=== PATIENT | female | born 1950 ===

== ENCOUNTER 2024-02-13 09:30 | Inpatient (IN) | payer OTHER ==
[~2024-02-13] VITALS: Ht 152.4 cm; Wt 50.8 kg
[2024-02-13] MEDS ORDERED: ISOSORBIDE DINI30 MG PO (11:01)
[2024-02-13] MEDS ORDERED: PEPCID AC20 MG PO (11:02)
[2024-02-13] MEDS ORDERED: LIPITOR20 MG PO (11:02)
[2024-02-13] MEDS ORDERED: PROTONIX20 MG PO (11:02)
[2024-02-13 11:03] VITALS: BP 150/88
[2024-02-22] MEDS ORDERED: CEFTRIAXONE SODIUM 2,000 MG VIAL IV ONE (08:45)
[2024-02-22] MEDS ORDERED: LIDOCAINE HCL 1%/EPINEPHRINE 20ML VIAL IJ ONE (08:45)
[2024-02-22] MEDS ORDERED: BUPIVACAINE HCL 30 ML VIAL IJ ONE (08:45)
[2024-02-22] MEDS ORDERED: CHLORHEXIDINE GLUCONATE 120 ML BOTTLE TOP ONE (08:45)
[2024-02-22] MEDS ORDERED: METRONIDAZOLE/SODIUM CHLORIDE 500 MG/100 ML PIGGYBACK IV ONE (08:45)
[2024-02-22] MEDS ORDERED: METRONIDAZOLE/SODIUM CHLORIDE 500 MG/100 ML PIGGYBACK IV SCH (12:26)
[2024-02-22] MEDS ORDERED: CIPROFLOXACIN IN 5 % DEXTROSE 400 MG/200 ML PIGGYBAG IV SCH (12:26)
[2024-02-22] MEDS ORDERED: ONDANSETRON HCL 2 MG/ML VIAL IV PRN (12:30)
[2024-02-22] MEDS ORDERED: RINGERS SOLUTION,LACTATED 1,000 ML IV SCH (12:30)
[2024-02-22] MEDS ORDERED: CIPROFLOXACIN IN 5 % DEXTROSE 400 MG/200 ML PIGGYBAG IV ONE (12:36)
[2024-02-22] MEDS ORDERED: ENALAPRILAT DIHYDRATE 1.25 MG/ML VIAL IV ONE (13:15)
[2024-02-22] MEDS ORDERED: ENALAPRILAT DIHYDRATE 1.25 MG/ML VIAL IV PRN (14:00)
[2024-02-22 15:08] VITALS: BP 100/63; O2SAT 95
[2024-02-22 16:00] VITALS: BP 109/65; O2SAT 95
[2024-02-22] MEDS ORDERED: ATORVASTATIN CALCIUM 40 MG TABLET PO SCH (17:00)
[2024-02-22] MEDS ORDERED: TAMSULOSIN HCL 0.4 MG CAP PO NR (17:00)
[2024-02-22] MEDS ORDERED: HYOSCYAMINE SULFATE 0.125 MG TAB.SUBL SL SCH (17:00)
[2024-02-22] MEDS ORDERED: LACTOBACILLUS ACIDOPHILUS 1 CAP CAP PO NR (17:00)
[2024-02-22] MEDS ORDERED: GABAPENTIN 300 MG CAPSULE PO SCH (17:00)
[2024-02-22] MEDS ORDERED: FAMOTIDINE/PF 20 MG/2 ML VIAL IV PUSH SCH (21:00)
[2024-02-23] MEDS ORDERED: MEPERIDINE HCL/PF 25 MG/ML VIAL IV PRN (01:00)
[2024-02-23 08:00] VITALS: BP 90/50; O2SAT 97
[2024-02-23 08:33] LABS: HEMATOCRIT 38.7 % (36.0-45.00); HEMOGLOBIN 12.5 g/dL (12.0-15.00); MEAN CELL VOLUME 87.3 fL (80.00-100.00); MEAN CORPUSCULAR HEMOGLOBIN 28.2 pg (27.00-32.0); MEAN CORPUSCULAR HGB CONC 32.3 g/dl (32.0-36.0); PLATELET COUNT 308 K/uL (150-450); RED BLOOD COUNT 4.44 M/uL (4.00-6.00); RED CELL DISTRIBUTION WIDTH 15.7 % (11.5-14.5)
[2024-02-23 08:48] LABS: ALBUMIN 2.6 gm/dL (3.4-5.0); CALCIUM 8.7 mg/dL (8.5-10.1); CREATININE SERUM 2.53 mg/dL (0.55-1.02); GFR 18.72; PHOSPHOROUS 4.4 mg/dL (2.5-4.9); POTASSIUM 3.83 mEq/L (3.5-5.1)
[2024-02-23] MEDS ORDERED: LACTOBACILLUS ACIDOPHILUS 1 CAP CAP PO SCH (09:00)
[2024-02-23] MEDS ORDERED: TAMSULOSIN HCL 0.4 MG CAP PO SCH (09:00)
[2024-02-23 09:01] LABS: MAGNESIUM 1.2 mg/dL (1.8-2.4)
[2024-02-23] MEDS ORDERED: hydrALAZINE HCL 20 MG VIAL IV PRN (09:45)
[2024-02-23] MEDS ORDERED: 0.9 % SODIUM CHLORIDE 1,000 ML IV SCH (10:00)
[2024-02-23] MEDS ORDERED: CIPROFLOXACIN IN 5 % DEXTROSE 400 MG/200 ML PIGGYBAG IV SCH (12:00)
[2024-02-23 15:54] VITALS: BP 59/44; O2SAT 92
[2024-02-23] MEDS ORDERED: ENOXAPARIN SODIUM 30 MG/0.3 ML SYRINGE SUBCUTANEO SCH (17:00)
[2024-02-23] MEDS ORDERED: ENOXAPARIN SODIUM 40 MG/0.4 ML SYRINGE SUBCUTANEO SCH (17:00)
[2024-02-23] MEDS ORDERED: AMINO ACIDS 4.25 %/DEXTROSE 5% 1,000 ML PERIFERAL SCH (17:00)
[2024-02-23] MEDS ORDERED: NOREPINEPHRINE BITARTRATE 1 MG/ML AMPUL IV ONE (18:26)
[2024-02-23] MEDS ORDERED: NOREPINEPHRINE BITARTRATE 4 MG in DEXTROSE 5 % IN WATER 250 ML IV SCH (18:30)
[2024-02-23 19:12] LABS: HEMATOCRIT 35.8 % (36.0-45.00); HEMOGLOBIN 11.4 g/dL (12.0-15.00); MEAN CELL VOLUME 87.2 fL (80.00-100.00); MEAN CORPUSCULAR HEMOGLOBIN 27.8 pg (27.00-32.0); MEAN CORPUSCULAR HGB CONC 31.9 g/dl (32.0-36.0); PLATELET COUNT 192 K/uL (150-450); RED BLOOD COUNT 4.11 M/uL (4.00-6.00); RED CELL DISTRIBUTION WIDTH 15.5 % (11.5-14.5)
[2024-02-23 20:02] LABS: CALCIUM 8.1 mg/dL (8.5-10.1); CREATININE SERUM 2.69 mg/dL (0.55-1.02); GFR 17.45; PHOSPHOROUS 4.5 mg/dL (2.5-4.9); POTASSIUM 4.28 mEq/L (3.5-5.1)
[2024-02-23] MEDS ORDERED: MAGNESIUM SULFATE IN WATER 50 ML IV ONE (20:15)
[2024-02-23 20:31] VITALS: O2SAT 100
[2024-02-23] MEDS ORDERED: LINEZOLID IN DEXTROSE 5% 300 ML IV SCH (21:00)
[2024-02-23] MEDS ORDERED: MEROPENEM 500 MG/VIAL VIAL IV SCH (21:00)
[2024-02-23] MEDS ORDERED: MEROPENEM 500 MG/VIAL VIAL IV ONE (21:26)
[2024-02-23] MEDS ORDERED: MAGNESIUM SULFATE IN WATER 2 GM/50 ML PIGGYBAG IV ONE (21:26)
[2024-02-23] MEDS ORDERED: LINEZOLID IN DEXTROSE 5% 600 MG/300 ML PIGGYBAG IV ONE (21:26)
[2024-02-24] VITALS (9 sets, daily range): BP systolic 94–100; BP diastolic 65–67; O2SAT 96–100
[2024-02-24] MEDS ORDERED: NOREPINEPHRINE BITARTRATE 1 MG/ML AMPUL IV ONE (05:32)
[2024-02-24 07:47] LABS: CREATININE SERUM 1.78 mg/dL (0.55-1.02); GFR 28.1; MAGNESIUM 1.6 mg/dL (1.8-2.4); PHOSPHOROUS 2.9 mg/dL (2.5-4.9); POTASSIUM 3.64 mEq/L (3.5-5.1)
[2024-02-24 07:54] LABS: HEMATOCRIT 31.5 % (36.0-45.00); HEMOGLOBIN 10.2 g/dL (12.0-15.00); MEAN CELL VOLUME 85.8 fL (80.00-100.00); MEAN CORPUSCULAR HEMOGLOBIN 27.9 pg (27.00-32.0); MEAN CORPUSCULAR HGB CONC 32.5 g/dl (32.0-36.0); PLATELET COUNT 169 K/uL (150-450); RED BLOOD COUNT 3.68 M/uL (4.00-6.00); RED CELL DISTRIBUTION WIDTH 15.3 % (11.5-14.5)
[2024-02-24] MEDS ORDERED: ENOXAPARIN SODIUM 30 MG/0.3 ML SYRINGE SUBCUTANEO SCH (09:00)
[2024-02-24] MEDS ORDERED: ENOXAPARIN SODIUM 40 MG/0.4 ML SYRINGE SUBCUTANEO SCH (09:00)
[2024-02-25] VITALS (8 sets, daily range): BP systolic 72–167; BP diastolic 52–83; O2SAT 96–100
[2024-02-25 08:57] LABS: HEMATOCRIT 25.4 % (36.0-45.00); MEAN CELL VOLUME 83.6 fL (80.00-100.00); MEAN CORPUSCULAR HEMOGLOBIN 28.2 pg (27.00-32.0); MEAN CORPUSCULAR HGB CONC 33.8 g/dl (32.0-36.0); PLATELET COUNT 161 K/uL (150-450); RED BLOOD COUNT 3.04 M/uL (4.00-6.00); RED CELL DISTRIBUTION WIDTH 15.9 % (11.5-14.5)
[2024-02-25 08:59] LABS: HEMOGLOBIN 8.6 g/dL (12.0-15.00)
[2024-02-25 09:09] LABS: INR 1.11
[2024-02-25 09:28] LABS: ALBUMIN 1.7 gm/dL (3.4-5.0); BILIRUBIN TOTAL 0.45 mg/dL (0.3-1.2); BILIRUBIN,CONJUGATED 0.24 mg/dL (0.0-0.2); BILIRUBIN,UNCONJUGATED 0.21 mg/dL (0.0-0.6); CHOL HDL RATIO 2.4 (0-5.0); GFR 54.66; MAGNESIUM 1.9 mg/dL (1.8-2.4); POTASSIUM 3.03 mEq/L (3.5-5.1)
[2024-02-25 09:30] LABS: CALCIUM 6.9 mg/dL (8.5-10.1)
[2024-02-25 11:26] LABS: BLOOD UREA NITROGEN 17 mg/dL (7-18)
[2024-02-25] MEDS ORDERED: FLUCONAZOLE IN NACL,ISO-OSM 400 MG/200 ML PIGGYBAG IV NR (16:00)
[2024-02-25] MEDS ORDERED: MEROPENEM 500 MG/VIAL VIAL IV SCH (17:00)
[2024-02-25] MEDS ORDERED: POTASSIUM CHLORIDE IN WATER 100 ML IV SCH (18:00)
[2024-02-25] MEDS ORDERED: RINGERS SOLUTION,LACTATED 1,000 ML IV SCH (20:30)
[2024-02-26] VITALS (13 sets, daily range): BP systolic 85–168; BP diastolic 66–99; O2SAT 96–100
[2024-02-26] MEDS ORDERED: FUROsemide 20 MG/2 ML VIAL IV NR (09:00)
[2024-02-26 10:10] LABS: HEMATOCRIT 38.9 % (36.0-45.00); MEAN CELL VOLUME 81.6 fL (80.00-100.00); MEAN CORPUSCULAR HEMOGLOBIN 27.3 pg (27.00-32.0); MEAN CORPUSCULAR HGB CONC 33.4 g/dl (32.0-36.0); RED BLOOD COUNT 4.77 M/uL (4.00-6.00); RED CELL DISTRIBUTION WIDTH 16.6 % (11.5-14.5)
[2024-02-26 10:13] LABS: PLATELET COUNT 124 K/uL (150-450)
[2024-02-26] MEDS ORDERED: CHLORHEXIDINE GLUCONATE 120 ML BOTTLE TOP ONE (10:32)
[2024-02-26 11:34] LABS: BILIRUBIN TOTAL 1.21 mg/dL (0.3-1.2); CALCIUM 6.9 mg/dL (8.5-10.1); CREATININE SERUM 0.57 mg/dL (0.55-1.02); GFR 104.56; GLOBULINA 2.9 G/DL (2.4-3.5); MAGNESIUM 1.5 mg/dL (1.8-2.4); TOTAL PROTEIN 4.9 gm/dL (6.4-8.2)
[2024-02-26 11:53] LABS: POTASSIUM 2.96 mEq/L (3.5-5.1)
[2024-02-26] MEDS ORDERED: POTASSIUM PHOS,M-BASIC-D-BASIC 3 MM/ML VIAL IV SCH (14:00)
[2024-02-26] MEDS ORDERED: FLUCONAZOLE IN NACL,ISO-OSM 100 ML IV SCH (17:00)
[2024-02-27 04:00] VITALS: BP 145/79; BP 89/72; O2SAT 98; O2SAT 99
[2024-02-27 06:49] LABS: HEMATOCRIT 34.6 % (36.0-45.00); HEMOGLOBIN 11.8 g/dL (12.0-15.00); MEAN CORPUSCULAR HEMOGLOBIN 27.5 pg (27.00-32.0); PLATELET COUNT 107 K/uL (150-450); RED BLOOD COUNT 4.27 M/uL (4.00-6.00); RED CELL DISTRIBUTION WIDTH 16.3 % (11.5-14.5)
[2024-02-27 06:58] LABS: CALCIUM 7.2 mg/dL (8.5-10.1); CREATININE SERUM 0.47 mg/dL (0.55-1.02); GFR 130.63
[2024-02-27 07:00] VITALS: BP 153/88; O2SAT 100
[2024-02-27 07:06] LABS: POTASSIUM 2.91 mEq/L (3.5-5.1)
[2024-02-27] MEDS ORDERED: POTASSIUM PHOS,M-BASIC-D-BASIC 3 MM/ML VIAL IV NR (08:45)
[2024-02-27] MEDS ORDERED: POTASSIUM CHLORIDE IN WATER 40 MEQ/100 ML PIGGYBAG IV NR (08:55)
[2024-02-27] MEDS ORDERED: MEPERIDINE HCL/PF 25 MG/ML VIAL IV PRN (11:30)
[2024-02-27 12:00] VITALS: BP 150/86; O2SAT 100
[2024-02-27 15:15] VITALS: BP 150/82; O2SAT 100
[2024-02-27] MEDS ORDERED: LISINOPRIL 5 MG TABLET PO SCH (17:00)
[2024-02-27 20:00] VITALS: BP 149/83; O2SAT 100
[2024-02-27 23:20] VITALS: BP 137/74; O2SAT 100
[2024-02-28 03:59] VITALS: BP 160/91; O2SAT 98
[2024-02-28 06:18] LABS: HEMOGLOBIN 11.9 g/dL (12.0-15.00); MEAN CELL VOLUME 81.4 fL (80.00-100.00); MEAN CORPUSCULAR HEMOGLOBIN 27.7 pg (27.00-32.0); MEAN CORPUSCULAR HGB CONC 34.1 g/dl (32.0-36.0); RED CELL DISTRIBUTION WIDTH 16.1 % (11.5-14.5)
[2024-02-28 06:29] LABS: PLATELET COUNT 113 K/uL (150-450)
[2024-02-28 07:09] LABS: CALCIUM 7.1 mg/dL (8.5-10.1); CREATININE SERUM 0.45 mg/dL (0.55-1.02); GFR 137.35; POTASSIUM 3.25 mEq/L (3.5-5.1)
[2024-02-28 07:15] LABS: MAGNESIUM 1.3 mg/dL (1.8-2.4); PHOSPHOROUS 1.9 mg/dL (2.5-4.9)
[2024-02-28 07:40] VITALS: BP 166/92; O2SAT 99
[2024-02-28] MEDS ORDERED: MAGNESIUM SULFATE IN WATER 2 GM/50 ML PIGGYBAG IV ONE (07:45)
[2024-02-28] MEDS ORDERED: MAGNESIUM SULFATE IN WATER 2 GM/50 ML PIGGYBAG IV NR (09:30)
[2024-02-28 12:00] VITALS: BP 151/81
[2024-02-28] MEDS ORDERED: ONDANSETRON HCL 2 MG/ML VIAL IV PRN (12:45)
[2024-02-28 15:22] VITALS: BP 143/78; O2SAT 100
[2024-02-28] MEDS ORDERED: POTASSIUM PHOS,M-BASIC-D-BASIC 3 MM/ML VIAL IV SCH (17:00)
[2024-02-28 20:00] VITALS: BP 159/87; O2SAT 100
[2024-02-29] VITALS: BP 128/80; O2SAT 97
[2024-02-29 07:24] LABS: CALCIUM 7.4 mg/dL (8.5-10.1); CREATININE SERUM 0.46 mg/dL (0.55-1.02); GFR 133.91; MAGNESIUM 1.9 mg/dL (1.8-2.4); PHOSPHOROUS 2.1 mg/dL (2.5-4.9); POTASSIUM 3.43 mEq/L (3.5-5.1)
[2024-02-29 08:00] VITALS: BP 134/90; O2SAT 97
[2024-02-29] MEDS ORDERED: PANTOPRAZOLE SODIUM 40 MG/VIAL VIAL IV PUSH STA (08:21)
[2024-02-29] MEDS ORDERED: PANTOPRAZOLE SODIUM 40 MG/VIAL VIAL IV PUSH SCH (09:00)
[2024-02-29 16:00] VITALS: BP 160/100; O2SAT 95
[2024-02-29 19:00] VITALS: BP 139/83
[2024-03-01 00:55] VITALS: BP 131/75; O2SAT 96
[2024-03-01 08:00] VITALS: BP 145/84; O2SAT 97
[2024-03-01 16:07] VITALS: BP 166/89; O2SAT 96
[2024-03-01] MEDS ORDERED: MEPERIDINE HCL/PF 25 MG/ML VIAL IV PRN (18:15)
[2024-03-02 00:17] VITALS: BP 157/92; O2SAT 94
[2024-03-02 08:00] VITALS: BP 161/82; O2SAT 96
[2024-03-02] MEDS ORDERED: HYOSCYAMINE SULFATE 0.125 MG TAB.SUBL SL PRN (08:24)
[2024-03-02 16:00] VITALS: BP 181/94; O2SAT 96
[2024-03-02] MEDS ORDERED: GABAPENTIN 300 MG CAPSULE PO PRN (17:02)
[2024-03-02] MEDS ORDERED: SIMETHICONE 125 MG CAPSULE PO SCH (21:00)
[2024-03-03 00:08] VITALS: BP 145/83; O2SAT 96
[2024-03-03 07:27] LABS: HEMATOCRIT 36.9 % (36.0-45.00); HEMOGLOBIN 12.6 g/dL (12.0-15.00); MEAN CELL VOLUME 81.2 fL (80.00-100.00); MEAN CORPUSCULAR HEMOGLOBIN 27.7 pg (27.00-32.0); MEAN CORPUSCULAR HGB CONC 34.1 g/dl (32.0-36.0); PLATELET COUNT 256 K/uL (150-450); RED BLOOD COUNT 4.54 M/uL (4.00-6.00); RED CELL DISTRIBUTION WIDTH 15.6 % (11.5-14.5)
[2024-03-03 08:28] LABS: ALBUMIN 1.9 gm/dL (3.4-5.0); BILIRUBIN TOTAL 0.59 mg/dL (0.3-1.2); CALCIUM 7.9 mg/dL (8.5-10.1); CREATININE SERUM 0.38 mg/dL (0.55-1.02); GFR 166.94; GLOBULINA 2.8 G/DL (2.4-3.5); TOTAL PROTEIN 4.7 gm/dL (6.4-8.2)
[2024-03-03 08:59] LABS: POTASSIUM 2.92 mEq/L (3.5-5.1)
[2024-03-03 10:12] VITALS: BP 163/83; O2SAT 96
[2024-03-03] MEDS ORDERED: VANCOMYCIN HCL 1,000 MG VIAL IV NR (13:00)
[2024-03-03] MEDS ORDERED: VANCOMYCIN HCL 1,000 MG VIAL ONE ×2 (13:51→20:08)
[2024-03-03] MEDS ORDERED: DIATRIZOATE MEGLUMINE, SODIUM 30 ML BOTTLE PO STA (13:53)
[2024-03-03] MEDS ORDERED: POTASSIUM CHLORIDE 20MEQ/100ML H2O PB IV NR (14:00)
[2024-03-03 15:02] LABS: URINE APPEARANCE Clear; URINE BILIRRUBIN Negative (NEGATIVE); URINE BLOOD Moderate; URINE COLOR Yellow; URINE GLUCOSE Negative (NEGATIVE); URINE KETONE 15 (NEGATIVE); URINE LEUKOCYTE Negative; URINE NITRATE Negative; URINE PROTEIN 30 (NEGATIVE); URINE UROBILINOGEN 0.2 E.U./dl
[2024-03-03 15:10] LABS: URINE BACTERIA 25.7 uL (0.0-1933); URINE EPITHELIAL CELLS 1.7 uL (0.0-38.8); URINE RBC 124.5 uL (0.0-20.8); URINE WBC 7.2 uL (0.0-23.2)
[2024-03-03 15:31] LABS: URINE CAST 0.44 uL (0.0-1.40)
[2024-03-03] MEDS ORDERED: levoFLOXacin IN DEXTROSE 5 % 5 MG/ML PIGGYBAG IV NR (16:00)
[2024-03-03 17:31] VITALS: BP 137/84; O2SAT 96
[2024-03-03] MEDS ORDERED: MEROPENEM 500 MG/VIAL VIAL IV SCH (18:00)
[2024-03-03] MEDS ORDERED: VANCOMYCIN HCL 1,000 MG VIAL IV SCH (21:00)
[2024-03-04] VITALS: BP 129/84; O2SAT 97
[2024-03-04] MEDS ORDERED: VANCOMYCIN HCL 1,000 MG VIAL ONE ×2 (06:44→15:32)
[2024-03-04 08:00] VITALS: BP 165/79; O2SAT 95
[2024-03-04] MEDS ORDERED: levoFLOXacin IN DEXTROSE 5 % 5 MG/ML PIGGYBAG IV SCH (09:00)
[2024-03-04 16:00] VITALS: BP 160/92; O2SAT 97
[2024-03-05 00:10] VITALS: BP 122/83; O2SAT 96
[2024-03-05] MEDS ORDERED: VANCOMYCIN HCL 1,000 MG VIAL ONE ×2 (07:02→16:06)
[2024-03-05 07:54] LABS: HEMATOCRIT 36.9 % (36.0-45.00); HEMOGLOBIN 12.4 g/dL (12.0-15.00); MEAN CELL VOLUME 82.9 fL (80.00-100.00); MEAN CORPUSCULAR HEMOGLOBIN 27.9 pg (27.00-32.0); MEAN CORPUSCULAR HGB CONC 33.6 g/dl (32.0-36.0); PLATELET COUNT 286 K/uL (150-450); RED BLOOD COUNT 4.45 M/uL (4.00-6.00)
[2024-03-05 08:00] VITALS: BP 164/89; O2SAT 97
[2024-03-05 16:00] VITALS: BP 153/84; O2SAT 100
[2024-03-06 00:57] VITALS: BP 128/78; O2SAT 95
[2024-03-06 07:40] LABS: BILIRUBIN TOTAL 0.44 mg/dL (0.3-1.2); CALCIUM 7.8 mg/dL (8.5-10.1); CREATININE SERUM 0.34 mg/dL (0.55-1.02); GFR 189.8; GLOBULINA 2.7 G/DL (2.4-3.5); TOTAL PROTEIN 4.7 gm/dL (6.4-8.2)
[2024-03-06] MEDS ORDERED: VANCOMYCIN HCL 1,000 MG VIAL ONE (07:59)
[2024-03-06 08:07] LABS: POTASSIUM 2.92 mEq/L (3.5-5.1)
[2024-03-06 09:17] VITALS: BP 180/83; O2SAT 98
[2024-03-06] MEDS ORDERED: POTASSIUM CHLORIDE 20MEQ/100ML H2O PB IV SCH (13:00)
[2024-03-06 16:00] VITALS: BP 126/84; O2SAT 95
[2024-03-06] MEDS ORDERED: VANCOMYCIN HCL 5 MG/ML REDILUIDO IV SCH (21:00)
[2024-03-07] VITALS: BP 134/86; O2SAT 95
[2024-03-07 06:34] LABS: HEMATOCRIT 35.7 % (36.0-45.00); HEMOGLOBIN 12.1 g/dL (12.0-15.00); MEAN CELL VOLUME 81.9 fL (80.00-100.00); MEAN CORPUSCULAR HEMOGLOBIN 27.8 pg (27.00-32.0); MEAN CORPUSCULAR HGB CONC 33.9 g/dl (32.0-36.0); PLATELET COUNT 406 K/uL (150-450); RED BLOOD COUNT 4.36 M/uL (4.00-6.00)
[2024-03-07 07:14] LABS: CREATININE SERUM 0.39 mg/dL (0.55-1.02); GFR 162.01; MAGNESIUM 1.6 mg/dL (1.8-2.4); PHOSPHOROUS 2.1 mg/dL (2.5-4.9); POTASSIUM 3.58 mEq/L (3.5-5.1)
[2024-03-07 08:00] VITALS: BP 136/66; O2SAT 97
[2024-03-07 16:30] VITALS: BP 121/80; O2SAT 94
[2024-03-07] MEDS ORDERED: FAMOtidine 20 MG TABLET PO SCH (20:24)
[2024-03-07] MEDS ORDERED: FAMOtidine 20 MG TABLET PO ONE (21:20)
[2024-03-08 00:16] VITALS: BP 124/78; O2SAT 96
[2024-03-08 08:00] VITALS: BP 130/70; O2SAT 95
[2024-03-08] MEDS ORDERED: DICYCLOMINE HCL 20 MG TABLET PO PRN (09:30)
[2024-03-08 16:41] VITALS: BP 125/73; O2SAT 99
[2024-03-09] VITALS: BP 100/58; O2SAT 95
[2024-03-09 07:46] LABS: HEMATOCRIT 31.2 % (36.0-45.00); HEMOGLOBIN 10.5 g/dL (12.0-15.00); MEAN CELL VOLUME 82.9 fL (80.00-100.00); MEAN CORPUSCULAR HEMOGLOBIN 27.9 pg (27.00-32.0); MEAN CORPUSCULAR HGB CONC 33.6 g/dl (32.0-36.0); PLATELET COUNT 413 K/uL (150-450); RED BLOOD COUNT 3.76 M/uL (4.00-6.00); RED CELL DISTRIBUTION WIDTH 16.4 % (11.5-14.5)
[2024-03-09 08:00] VITALS: BP 116/68; O2SAT 95
[2024-03-09 08:19] LABS: CREATININE SERUM 0.48 mg/dL (0.55-1.02); GFR 127.49; PHOSPHOROUS 2.9 mg/dL (2.5-4.9); POTASSIUM 3.5 mEq/L (3.5-5.1)
[2024-03-09 16:00] VITALS: BP 125/81; O2SAT 95
[2024-03-09] MEDS ORDERED: PROMETHAZINE HCL 25 MG/ML AMPUL ONE (16:19)
[2024-03-09] MEDS ORDERED: ONDANSETRON HCL 2 MG/ML VIAL IV PRN (16:45)
[2024-03-09] MEDS ORDERED: PANTOPRAZOLE SODIUM 40 MG/VIAL VIAL IV SCH (16:45)
[2024-03-09] MEDS ORDERED: PANTOPRAZOLE SODIUM 80 MG in 0.9 % SODIUM CHLORIDE 100 ML IV SCH (17:00)
[2024-03-09] MEDS ORDERED: PROMETHAZINE HCL 50 MG/ML AMPUL IM NR (17:00)
[2024-03-10 00:44] VITALS: BP 107/59; O2SAT 96
[2024-03-10 06:10] LABS: HEMATOCRIT 30.1 % (36.0-45.00); HEMOGLOBIN 10.3 g/dL (12.0-15.00); MEAN CELL VOLUME 84.1 fL (80.00-100.00); MEAN CORPUSCULAR HEMOGLOBIN 28.8 pg (27.00-32.0); MEAN CORPUSCULAR HGB CONC 34.3 g/dl (32.0-36.0); PLATELET COUNT 380 K/uL (150-450); RED BLOOD COUNT 3.57 M/uL (4.00-6.00); RED CELL DISTRIBUTION WIDTH 16.7 % (11.5-14.5)
[2024-03-10 06:44] LABS: ALBUMIN 1.8 gm/dL (3.4-5.0); BILIRUBIN TOTAL 0.36 mg/dL (0.3-1.2); CREATININE SERUM 0.53 mg/dL (0.55-1.02); GFR 113.72; GLOBULINA 2.5 G/DL (2.4-3.5); MAGNESIUM 1.6 mg/dL (1.8-2.4); PHOSPHOROUS 3.4 mg/dL (2.5-4.9); POTASSIUM 3.6 mEq/L (3.5-5.1); TOTAL PROTEIN 4.3 gm/dL (6.4-8.2)
[2024-03-10] MEDS ORDERED: DEXTROSE 50 % IN WATER 0.5 G/ML DISP.SYRIN IV ONE (19:14)
[2024-03-11 16:00] VITALS: BP 144/80; O2SAT 100
[2024-03-12] VITALS: BP 149/73; O2SAT 98
[2024-03-12 08:53] VITALS: BP 139/71; O2SAT 94
[2024-03-12] MEDS ORDERED: DIATRIZOATE MEGLUMINE, SODIUM 30 ML BOTTLE PO NR (14:15)
[2024-03-12 16:00] VITALS: BP 144/82; O2SAT 98
[2024-03-13 00:05] VITALS: BP 142/68; O2SAT 97
[2024-03-13 06:53] LABS: HEMOGLOBIN 9.2 g/dL (12.0-15.00); MEAN CELL VOLUME 83.4 fL (80.00-100.00); MEAN CORPUSCULAR HEMOGLOBIN 28.5 pg (27.00-32.0); MEAN CORPUSCULAR HGB CONC 34.1 g/dl (32.0-36.0); PLATELET COUNT 408 K/uL (150-450); RED BLOOD COUNT 3.24 M/uL (4.00-6.00); RED CELL DISTRIBUTION WIDTH 16.3 % (11.5-14.5)
[2024-03-13 07:51] VITALS: BP 147/78; O2SAT 96
[2024-03-13 08:00] LABS: CALCIUM 8.1 mg/dL (8.5-10.1); CREATININE SERUM 0.34 mg/dL (0.55-1.02); GFR 189.8; MAGNESIUM 1.6 mg/dL (1.8-2.4); PHOSPHOROUS 2.8 mg/dL (2.5-4.9)
[2024-03-13 08:40] LABS: POTASSIUM 2.94 mEq/L (3.5-5.1)
[2024-03-13] MEDS ORDERED: MAGNESIUM SULFATE IN WATER 4 GM/100 ML PIGGYBACK IV NR (14:00)
[2024-03-13 16:00] VITALS: BP 168/79; O2SAT 100
[2024-03-13] MEDS ORDERED: POTASSIUM CHLORIDE IN WATER 40 MEQ/100 ML PIGGYBAG IV NR (16:00)
[2024-03-13 23:37] VITALS: BP 128/61; O2SAT 98
[2024-03-14 06:43] LABS: CALCIUM 7.6 mg/dL (8.5-10.1); CREATININE SERUM 0.34 mg/dL (0.55-1.02); GFR 189.8; PHOSPHOROUS 2.4 mg/dL (2.5-4.9); POTASSIUM 3.17 mEq/L (3.5-5.1)
[2024-03-14 09:00] VITALS: BP 130/81; O2SAT 97
[2024-03-14] MEDS ORDERED: NAPH,MB-DB/K PH,MBDB 1 PKT PACKET PO SCH (13:27)
[2024-03-14 16:00] VITALS: BP 168/93; O2SAT 97
[2024-03-14] MEDS ORDERED: POTASSIUM CHLORIDE IN WATER 40 MEQ/100 ML PIGGYBAG IV NR (16:00)
[2024-03-14 17:51] VITALS: BP 104/68; O2SAT 99
[2024-03-15] VITALS: BP 119/74; O2SAT 97
[2024-03-15] MEDS ORDERED: PANTOPRAZOLE SODIUM 80 MG in 0.9 % SODIUM CHLORIDE 100 ML IV SCH (08:00)
[2024-03-15 08:16] VITALS: BP 135/72; O2SAT 95
[2024-03-15 11:29] LABS: HEMATOCRIT 33.1 % (36.0-45.00); HEMOGLOBIN 11.2 g/dL (12.0-15.00); MEAN CELL VOLUME 83.6 fL (80.00-100.00); MEAN CORPUSCULAR HEMOGLOBIN 28.2 pg (27.00-32.0); MEAN CORPUSCULAR HGB CONC 33.7 g/dl (32.0-36.0); PLATELET COUNT 476 K/uL (150-450); RED BLOOD COUNT 3.96 M/uL (4.00-6.00); RED CELL DISTRIBUTION WIDTH 16.8 % (11.5-14.5)
[2024-03-15 12:04] LABS: ALBUMIN 2.3 gm/dL (3.4-5.0); CALCIUM 7.9 mg/dL (8.5-10.1); CREATININE SERUM 0.52 mg/dL (0.55-1.02); GFR 116.24; PHOSPHOROUS 2.9 mg/dL (2.5-4.9); POTASSIUM 3.4 mEq/L (3.5-5.1)
[2024-03-15 16:02] VITALS: BP 143/81; O2SAT 98
[2024-03-15] MEDS ORDERED: MEPERIDINE HCL/PF 25 MG/ML VIAL IV PRN (20:00)
[2024-03-16] VITALS: BP 125/67; O2SAT 95
[2024-03-16 08:00] VITALS: BP 124/77; O2SAT 100
[2024-03-16] MEDS ORDERED: PIPERACILLIN/TAZOBACTAM SODIUM 3.375 GM in DEXTROSE 5 % IN WATER 100 ML IV SCH (12:00)
[2024-03-16] MEDS ORDERED: FLUCONAZOLE 200 MG TABLET PO SCH (12:00)
[2024-03-16 16:00] VITALS: BP 133/85; O2SAT 100
[2024-03-17] VITALS: BP 119/69; O2SAT 95
[2024-03-17 08:00] VITALS: BP 109/72; O2SAT 99
[2024-03-17 16:28] VITALS: BP 145/87; O2SAT 97
[2024-03-18 00:27] VITALS: BP 116/76; O2SAT 97
[2024-03-18 07:02] LABS: HEMOGLOBIN 9.6 g/dL (12.0-15.00); MEAN CELL VOLUME 83.7 fL (80.00-100.00); MEAN CORPUSCULAR HEMOGLOBIN 28.6 pg (27.00-32.0); MEAN CORPUSCULAR HGB CONC 34.2 g/dl (32.0-36.0); PLATELET COUNT 351 K/uL (150-450); RED BLOOD COUNT 3.35 M/uL (4.00-6.00); RED CELL DISTRIBUTION WIDTH 16.4 % (11.5-14.5)
[2024-03-18 08:00] VITALS: BP 133/73; O2SAT 99
[2024-03-18 16:09] VITALS: BP 120/73; O2SAT 100
== END 2024-03-18 17:48 | disposition home or self-care (01) | DRG 853 ==
LOC: O/R 02-22 05:50 → SURH 02-22 05:50 → ICU 02-26 04:40 → SURH 02-28 20:20
PROVIDERS: Internal Medicine; Internal Medicine Geriatric Medicine; Internal Medicine Infectious Disease; Internal Medicine Nephrology; Specialist; Surgery; ADMIT Surgery; ATTEND Surgery
PROC: 0DBP4ZZ Excision of Rectum, Percutaneous Endoscopic Approach (ICD-10-PCS; 2024-02-22)
PROC: 0DNW4ZZ Release Peritoneum, Percutaneous Endoscopic Approach (ICD-10-PCS; 2024-02-22)
PROC: 0DBU4ZZ Excision of Omentum, Percutaneous Endoscopic Approach (ICD-10-PCS; 2024-02-22)
PROC: 0DTN4ZZ Resection of Sigmoid Colon, Percutaneous Endoscopic Approach (ICD-10-PCS; principal; 2024-02-22 07:00)
PROC: 0D9680Z Drainage of Stomach with Drainage Device, Via Natural or Artificial Opening Endoscopic (ICD-10-PCS; 2024-02-23)
PROC: BT4JZZZ Ultrasonography of Kidneys and Bladder (ICD-10-PCS; 2024-02-23)
PROC: BW24ZZZ Computerized Tomography (CT Scan) of Chest and Abdomen (ICD-10-PCS; 2024-02-27)
PROC: BW21YZZ Computerized Tomography (CT Scan) of Abdomen and Pelvis using Other Contrast (ICD-10-PCS; 2024-03-03)
PROC: B54CZZZ Ultrasonography of Left Lower Extremity Veins (ICD-10-PCS; 2024-03-17)
DX: A41.9 Sepsis, unspecified organism (principal); R65.21 Severe sepsis with septic shock; C18.7 Malignant neoplasm of sigmoid colon; N17.9 Acute kidney failure, unspecified; E87.0 Hyperosmolality and hypernatremia; E87.20 Acidosis, unspecified; J90 Pleural effusion, not elsewhere classified; K66.0 Peritoneal adhesions (postprocedural) (postinfection); I25.10 Atherosclerotic heart disease of native coronary artery without angina pectoris; E87.6 Hypokalemia; I95.9 Hypotension, unspecified; D64.9 Anemia, unspecified; R33.9 Retention of urine, unspecified